=== PATIENT | female | born 1955 | race Caucasian/White ===

== ENCOUNTER 2017-04-27 13:32 | Emergency (ER) | payer BC ==
[~2017-04-27] VITALS: Ht 162.6 cm; Wt 100.0 kg
[~2017-04-27 13:32] MED LIST: NO HOME MEDICATIONS; VICODIN 5/5001 UDTAB PO
[2017-04-27 13:39] VITALS: BP 149/81; TEMP 98.2
[2017-04-27] MEDS ORDERED: DIOVAN 160MG160 MG PO (13:46)
[2017-04-27] MEDS ORDERED: CYMBALTA 20MG20 MG PO (13:46)
[2017-04-27] MEDS ORDERED: NORCO 325 MG-51 TAB PO (13:46)
[2017-04-27] MEDS ORDERED: DYAZIDE 25 MG-31 CAP PO (13:47)
[2017-04-27] MEDS ORDERED: PERCOCET 325 MG1 TA2 PO (15:11)
[2017-04-27] MEDS ORDERED: ZOFRAN 4MG T4 MG/TAB PO (15:11)
[2017-04-27 15:26] VITALS: PULSE 90
== END 2017-04-27 15:27 | disposition home or self-care (01) ==
LOC: COL.ER 13:32
DX: G50.0 Trigeminal neuralgia (principal); I10 Essential (primary) hypertension
CPT/HCPCS: J1170; J2405

== ENCOUNTER 2019-06-18 08:19 | Emergency (ER) | payer MEDICARE, OTHER ==
[~2019-06-18] VITALS: Ht 165.1 cm; Wt 77.3 kg
[~2019-06-18 08:19] MED LIST changes: +CYMBALTA 20MG20 MG PO; +DIOVAN 160MG160 MG PO; +DYAZIDE 25 MG-31 CAP PO; +NORCO 325 MG-51 TAB PO; +PERCOCET 325 MG1 TA2 PO; +ZOFRAN 4MG T4 MG/TAB PO
[2019-06-18 08:24] VITALS: TEMP 97.7
[2019-06-18] MEDS ORDERED: PREVACID 30MG30 M1 PO (08:42)
[2019-06-18] MEDS ORDERED: VITAMIND3 5000 (08:42)
[2019-06-18] MEDS ORDERED: ALDACTONE 25MG25 M1 PO (08:43)
[2019-06-18 09:05] LABS: COLLECTION METHOD CLEAN CATCH
[2019-06-18 09:15] LABS: BASO # 0.1 (0.0-0.2); BASO % 0.5 % (0.0-2.0); EOS # 0.2 (0.0-0.7); EOS % 1.2 % (0-4.0); GRAN # 9.2 (1.4-6.5); GRAN % 67.1 % (42.2-75.2); HEMOGLOBIN 10.6 g/dl (12.5-16.0); LYMPH # 3.2 (1.2-3.4); LYMPH % 23.5 % (20.0-51.0); MEAN CELL VOLUME 77 fl (80.0-100.0); MEAN CORPUSCULAR HEMOGLOBIN 24 pg (27.0-31.0); MEAN CORPUSCULAR HGB CONC 31 g/dl (33.0-37.0); MEAN PLATELET VOLUME 10.8 fl (7.4-10.4); MONO % 7.3 % (1.7-9.3); PLATELET COUNT 408 K/mm3 (130-400); REDCELL DISTRIBUTION WIDTH-CV 16.2 % (11.5-14.5)
[2019-06-18 09:16] LABS: PH 5 (5-8); SQUAMOUS EPITHELIAL None Seen /hpf; URINE APPEARANCE Clear; URINE BACTERIA None Seen /hpf; URINE BILIRUBIN Negative (NEGATIVE); URINE BLOOD Negative (NEGATIVE); URINE COLOR Yellow; URINE GLUCOSE Negative (NEGATIVE); URINE KETONE Negative (NEGATIVE); URINE LEUKOCYTE ESTERASE Negative (NEGATIVE); URINE NITRATE Negative (NEGATIVE); URINE PROTEIN(semi-quant) Negative (NEGATIVE); URINE RBC None Seen /hpf; URINE UROBILINOGEN Negative (NEGATIVE)
[2019-06-18 09:27] LABS: HEMATOCRIT 34.7 % (37.0-47.0)
[2019-06-18 09:37] LABS: ALBUMIN 4.4 gm/dL (3.5-5.0); BILIRUBIN,TOTAL 0.7 mg/dL (0.0-1.0); C-REACTIVE PROTEIN 0.8 mg/dL (0.0-0.9); CALCIUM 9.6 mg/dL (8.4-10.2); CREATININE, serum 0.84 (0.52-1.25); POTASSIUM 4.2 mmol/L (3.4-5.0); TOTAL PROTEIN 7.9 gm/dL (6.4-8.2)
[2019-06-18] MEDS ORDERED: CIPRO 500MG TA500 MG PO (11:08)
[2019-06-18] MEDS ORDERED: FLAGYL500 MG PO (11:08)
[2019-06-18] MEDS ORDERED: ZOFRAN ODT4 MG PO (11:08)
[2019-06-18] MEDS ORDERED: NORCO 325 MG-51 TAB PO (11:08)
[2019-06-18 11:51] VITALS: BP 160/87; PULSE 80
== END 2019-06-18 11:52 | disposition home or self-care (01) ==
LOC: COL.ER 08:19
PROVIDERS: Physician Assistant
DX: K57.32 Diverticulitis of large intestine without perforation or abscess without bleeding (principal); K21.9 Gastro-esophageal reflux disease without esophagitis; I10 Essential (primary) hypertension; Z98.890 Other specified postprocedural states
CPT/HCPCS: J2405; J3010; J7030; Q9967

== ENCOUNTER 2020-05-07 16:50 | Emergency (ER) | payer MEDICARE, OTHER ==
[~2020-05-07] VITALS: Ht 165.1 cm; Wt 80.5 kg
[~2020-05-07 16:50] MED LIST changes: +ALDACTONE 25MG25 M1 PO; +CIPRO 500MG TA500 MG PO; +FLAGYL500 MG PO; +PREVACID 30MG30 M1 PO; +VITAMIND3 5000; +ZOFRAN ODT4 MG PO
[2020-05-07 16:52] VITALS: TEMP 98.6
[2020-05-07 17:32] LABS: COLLECTION METHOD CLEAN CATCH
[2020-05-07 17:36] LABS: BASO # 0.1 (0.0-0.2); BASO % 0.7 % (0.0-2.0); EOS # 0.1 (0.0-0.7); EOS % 1.3 % (0-4.0); GRAN # 5.2 (1.4-6.5); LYMPH % 33.7 % (20.0-51.0); MEAN CELL VOLUME 77 fl (80.0-100.0); MEAN CORPUSCULAR HEMOGLOBIN 24 pg (27.0-31.0); MEAN CORPUSCULAR HGB CONC 31 g/dl (33.0-37.0); MEAN PLATELET VOLUME 10.2 fl (7.4-10.4); MONO # 0.6 (0.1-0.6); PLATELET COUNT 346 K/mm3 (130-400); RED BLOOD COUNT 4.65 M/mm3 (4.10-5.30); REDCELL DISTRIBUTION WIDTH-CV 18.6 % (11.5-14.5)
[2020-05-07 17:39] LABS: MUCOUS Present /lpf; PH 5 (5-8); SQUAMOUS EPITHELIAL None Seen /hpf; URINE APPEARANCE Clear; URINE BACTERIA None Seen /hpf; URINE BILIRUBIN Negative (NEGATIVE); URINE BLOOD Negative (NEGATIVE); URINE COLOR Yellow; URINE GLUCOSE Negative (NEGATIVE); URINE KETONE Negative (NEGATIVE); URINE LEUKOCYTE ESTERASE Negative (NEGATIVE); URINE NITRATE Negative (NEGATIVE); URINE PROTEIN(semi-quant) Negative (NEGATIVE); URINE RBC 0-2 /hpf; URINE UROBILINOGEN Negative (NEGATIVE)
[2020-05-07 17:47] LABS: ALANINE AMINOTRANSFERASE 13 U/L (4-34); ALBUMIN 4.3 gm/dL (3.5-5.0); ALKALINE PHOSPHATASE 85 U/L (50-136); ANION GAP 8 mmol/L (7-16); AST,SGOT 21 U/L (15-37); BLOOD UREA NITROGEN 17 mg/dL (7-17); CALCIUM 9.5 mg/dL (8.4-10.2); CARBON DIOXIDE 27 mmol/L (22-30); CHLORIDE 103 mmol/L (98-107); GLUCOSE 92 mg/dL (74-106); POTASSIUM 4.2 mmol/L (3.4-5.0); SODIUM 138 mmol/L (137-145); TOTAL PROTEIN 7.7 gm/dL (6.4-8.2)
[2020-05-07 18:00] LABS: TROPONIN-I < 0.012 ng/mL (0.000-0.035)
[2020-05-07] MEDS ORDERED: NORCO 325 MG-51 TAB PO (19:23)
[2020-05-07 19:30] VITALS: BP 153/91; PULSE 71
== END 2020-05-07 19:53 | disposition home or self-care (01) ==
LOC: COL.ER 16:50
PROVIDERS: Family Medicine
DX: S29.9XXA Unspecified injury of thorax, initial encounter (principal); R40.2412 Glasgow coma scale score 13-15, at arrival to emergency department; W28.XXXA Contact with powered lawn mower, initial encounter
CPT/HCPCS: J2550; J3010; J7030; Q9967

== ENCOUNTER → 2020-06-16 | Outpatient (CLI) | payer MEDICARE, OTHER | LOC: COL.RAD 07:34 | DX: N28.1 Cyst of kidney, acquired (principal) ==